=== PATIENT | male | born 1965 | race African-American/Black ===

== ENCOUNTER 2020-02-07 13:52 | Emergency (ER) | payer OTHER, SELFPAY ==
--- NOTE | ~2020-02-07 | XR_ITS ---
EXAMINATION: XR foot LT 2V INDICATION: Left foot pain TECHNIQUE: Two views of the left foot are obtained. COMPARISON: None available FINDINGS: There is plantar soft tissue swelling of the foot. No radiopaque soft tissue foreign body i s identified. There is no fracture. Bone alignment is normal. The joint spaces are maintained. A tiny metallic density is seen anteriorly in the distal tibia of unclear etiology. IMPRESSION: 1. Plantar soft tissue swelling of the foot without evidence of radiopaque soft tissue foreign body o r acute osseous abnormality. Reviewed, dictated and finalized at location A. IMPRESSION: 1. Plantar soft tissue swelling of the foot without evidence of radiopaque soft tissue foreign body or acute osseous abnormality.
[2020-02-07 13:57] VITALS: BP 115/95; PULSE 71; RESP 18; TEMP 36.8; O2SAT 99
--- NOTE | 2020-02-07 14:10 | ED.LOWEXIN ---
HPI - Extremity Injury (Lower) General Chief Complaint: Extremity Injury, Lower Stated Complaint: stepped on kiara Time Seen by Provider: 02/07/20 14:10 Source: patient and family Mode of arrival: ambulatory Limitations: no limitations History of Present Illness HPI Narrative: Patient is a 54-year-old male who presents for evaluation of puncture wound to his left foot from a nail. Patient states he was wearing a shoe yesterday when he stepped on a nail that appeared kiara. It went through the shoe into his foot. States he was not wearing any socks. He reports mild pain in the forefoot where the nail entered. He denies redness, swelling or discharge from the wound. Pain is mild in nature. No ankle pain. No swelling. No fever or chills. Patient is not up-to-date on her tetanus. Related Data Allergies Allergy/AdvReac Type Severity Reaction Status Date / Time No Known Drug Allergies Allergy Unknown Verified 05/25/19 09:47 Review of Systems Review of Systems: Narrative: CONSTITUTIONAL: Denies fever CARDIOVASCULAR: Denies chest pain RESPIRATORY: Denies cough or dyspnea. GASTROINTESTINAL: Denies abdominal pain SKIN: Denies rash MUSCULOSKELETAL: Denies back pain, left forefoot pain NEUROLOGIC: Denies headache PMFSH Past Medical History Medical History (Updated 02/07/20 @ 14:38 by Eula Coker MD) Osteoarthritis of both hands Social History Social History Smoking status: Current every day smoker Smoking end date: 05/13/11 Alcohol intake: never Exam Narrative: Exam Narrative: GENERAL: Awake, alert, conversant HEAD: Normocephalic, atraumatic. EYES: PERRLA and EOMI. ENT: Nares clear, no rhinorrhea or epistaxis. Mucous membranes moist. NECK: Supple. CHEST: No respiratory distress, breathing even and non labored HEART: Regular rate, sinus rhythm ABDOMEN:Non distended, non tender EXTREMITIES: Normal range of motion. No edema. Small puncture wound to the plantar aspect of the left forefoot. No active bleeding. No laceration. No discharge or erythema. No pain with palpation. Full strength in the left foot, full sensation without deficit. DP pulse 2+. SKIN: Warm, dry, no rash. NEURO:No focal deficits. Alert and oriented x3 Course Vital Signs Vital signs: Vital Signs Temperature 36.8 C 02/07/20 13:57 Pulse Rate 71 02/07/20 13:57 Respiratory Rate 18 02/07/20 13:57 Blood Pressure 115/95 H 02/07/20 13:57 Pulse Oximetry 99 02/07/20 13:57 Temperature 36.8 C 02/07/20 13:57 Pulse Rate 71 02/07/20 13:57 Respiratory Rate 18 02/07/20 13:57 Blood Pressure 115/95 H 02/07/20 13:57 Pulse Oximetry 99 02/07/20 13:57 MDM - Extremity Injury (Lower) MDM Narrative Medical decision making narrative: Patient with puncture wound to left foot that does not appear acutely infected. His tetanus was updated. X-ray shows no osseous abnormality such as fracture or retained foreign body. Given patient was wearing a shoe, will prophylax with antibiotics. Patient given primary care physician follow-up. Advised to return should symptoms change or worsen. Differential Diagnosis Differential diagnosis: Likely puncture wound of foot and other Medical Records Attestation: I reviewed the patient's medical records. Imaging Data Radiologist's impression: ITS Impressions Foot X-Ray 02/07/20 14:16 IMPRESSION: 1. Plantar soft tissue swelling of the foot without evidence of radiopaque soft tissue foreign body or acute osseous abnormality. Discharge Plan Discharge Clinical Impression: Foot pain, left, Puncture wound Patient Disposition: Home, Self-Care Condition: Stable Instructions: Puncture Wound in the Foot (ED), Antibiotic Form Additional Instructions: Your tetanus was updated. You have no sign of broken bone or evidence of nail remaining in the foot bed. No fracture. Please contact your primary care physici
[2020-02-07] MEDS: TETANUS,DIPHTHERIA,AC PERTUSSIS ADULT (0.5 ML) BOOSTRIX IM (14:37)
== END 2020-02-07 15:22 | disposition home or self-care (01) ==
LOC: ANHED 15:00
PROVIDERS: Emergency Provider Emergency Medicine; PCP Internal Medicine
DX: S91.332A Puncture wound without foreign body, left foot, initial encounter (principal); M19.042 Primary osteoarthritis, left hand; M19.041 Primary osteoarthritis, right hand; F17.200 Nicotine dependence, unspecified, uncomplicated; Z23 Encounter for immunization; W45.0XXA Nail entering through skin, initial encounter
CPT/HCPCS: 73620; 90471; 90715; 99283

== ENCOUNTER 2021-08-25 09:33 | Emergency (ER) | payer OTHER, SELFPAY ==
--- NOTE | ~2021-08-25 | XR_ITS ---
EXAMINATION: XR lumbar spine 2-3V EXAM DATE: 08/25/2021 10:33 INDICATION: No known recent injury provided at this time. Pain of the low back. TECHNIQUE: Lumber spine frontal, lateral, lateral L5-S1 projections for interpretation. Comparison is made to prior examination from 05/22/2019. FINDINGS: There is 5 mm anterolisthesis L5 on S1 with mild to moderate loss of this disc height. No s pondylolysis suspected. The other disc heights are maintained. There is 2 mm anterolisthesis L4 on L5 . There is moderate lumbar arthropathy. There is mild anterior wedging of the T11 vertebral body which is most likely chronic or congenital f inding than acute compression fracture (there is no step off or cortical break to suggest it is acute ). The lumbar vertebral body heights are maintained. Possible 4 mm left nephrolithiasis. Compared to 2019, mild progression in spondylosis. IMPRESSION: 1. Grade 1 anterolisthesis L4 on L5 and L5 on S1. 2. Moderate lumbar facet arthropathy. Reviewed, dictated and finalized at location B.
[2021-08-25 09:43] VITALS: BP 147/108; PULSE 67; RESP 14; TEMP 36.3; O2SAT 99
--- NOTE | 2021-08-25 10:20 | ED.BACK ---
HPI - Back Pain/Injury General Chief Complaint: Back Pain/Injury Stated Complaint: allergic reaction Time Seen by Provider: 08/25/21 09:42 Source: patient, family and RN notes reviewed Mode of arrival: ambulatory Limitations: no limitations History of Present Illness HPI Narrative: This is a 56 year old male who presents for evaluation of possible allergic reaction. Patient was having some mild low back soreness yesterday. His placed an absorbine patch to his mid low back. He states within 2 hours of having patch in placed he developed itching at rash at site of patch. He moved his patch. He has developed swelling, worsening rash and pain at previous patch location. He states his placed on calamine lotion. He has had improvement in rash and itching. He took ibuprofen 2 hours ago and he is having improvement in his pain. His back pain is worse with movement. He did not have rash, swelling before patch placement. He denies numbness, tingling, fever, chills, nausea, vomiting, limb weakness, saddle anesthesia. Denies injury Related Data Allergies Allergy/AdvReac Type Severity Reaction Status Date / Time No Known Drug Allergies Allergy Unknown Verified 05/25/19 09:47 Review of Systems Review of Systems: All systems reviewed & are unremarkable except as noted in HPI and below PMFSH Past Medical History Medical History Osteoarthritis of both hands Social History Social History Smoking status: Current every day smoker Smoking end date: 05/13/11 Alcohol intake: never Exam Const: General: no acute distress and alert Orientation/consciousness: patient oriented x3 Eyes: EOM: EOMs intact bilaterally Resp: Effort & Inspection: normal respiratory effort and no retractions Auscultation: clear to auscultation bilaterally Cardio: Rate: regular rate Rhythm: regular rhythm Heart sounds: no murmurs GI: GI Palp: Yes Soft to palpation, No Tenderness to palpation present (GI) and No Guarding due to palpation present (GI) Auscultation: normal bowel sounds Skin: Other: at midline lumbar at L5 tthere is area with rash with induration mild tenderness likely from contact dermatitis Neuro: General: patient oriented x3, moves all extremities and CN's II-XI intact bilaterally Psych: Mental Status: mental status grossly normal Affect: normal affect Course Reevaluation(s) Reevaluation #1: Patient appears to be having local reaction to the patch. I Discussed discharge plan and management with patient. Date: 08/25/21 Time: 11:02 Vital Signs Vital signs: Vital Signs Temperature 97.3 F L 08/25/21 09:43 Pulse Rate 67 08/25/21 09:43 Respiratory Rate 14 08/25/21 09:43 Blood Pressure 147/108 H 08/25/21 09:43 Pulse Oximetry 99 08/25/21 09:43 Temperature 97.3 F L 08/25/21 09:43 Pulse Rate 67 08/25/21 09:43 Respiratory Rate 14 08/25/21 09:43 Blood Pressure 147/108 H 08/25/21 09:43 Pulse Oximetry 99 08/25/21 09:43 MDM - Back Pain/Injury Imaging Data Radiologist's impression: ITS Impressions Lumbar Spine X-Ray 08/25/21 10:37 IMPRESSION: 1. Grade 1 anterolisthesis L4 on L5 and L5 on S1. 2. Moderate lumbar facet arthropathy. Discharge Plan Discharge Clinical Impression: Low back pain Contact dermatitis Qualifiers: Contact dermatitis type: irritant Contact dermatitis trigger: other trigger Qualified Code(s): L24.89 - Irritant contact dermatitis due to other agents Patient Disposition: Home, Self-Care Condition: Stable Instructions: Antibiotic Form, Contact Dermatitis (ED), Back Pain (ED) Additional Instructions: Today you were evaluated for a reaction to the patch that was placed on your back. This will improve over the next few days. Apply steriod cream to area and follow discharge instructions. Take ibuprofen for your p
[2021-08-25] MEDS: diphenhydrAMINE HCl CAP 25 MG CAPSULE 50 MG PO (10:26)
== END 2021-08-25 11:37 | disposition home or self-care (01) ==
PROVIDERS: Emergency Provider General Practice; PCP Internal Medicine
DX: L24.4 Irritant contact dermatitis due to drugs in contact with skin (principal); M54.50 Low back pain, unspecified; M19.042 Primary osteoarthritis, left hand; M19.041 Primary osteoarthritis, right hand; Z87.891 Personal history of nicotine dependence
CPT/HCPCS: 72100; 99283; A9270

== ENCOUNTER 2021-11-14 17:44 | Emergency (ER) | payer OTHER, SELFPAY ==
--- NOTE | ~2021-11-14 | CT_ITS ---
CTA OF RIGHT upper extremity EXAMINATION: CTA UE RT DATE: 11/14/2021 20:11 INDICATION: Bruising and swelling, crush injury. TECHNIQUE: Computed tomography (CT) of the right upper extremity was performed with 100 mL Omnipaque- 300 intravenous contrast in the arterial phase. Automated exposure control and iterative reconstructi on technique were employed. The dose-length product was 359.69 mGy-cm. Multiplanar reformat and 3-D v olume rendered images were created by the technologist on a separate workstation. COMPARISON: X-ray right forearm, same date FINDINGS: Limitations: None Bones: The included osseous structures are within normal limits. No acute fracture or dislocation The re are no erosive or destructive bony lesions. Soft Tissues:Subcutaneous edema/contusion in the lower portions of the upper arm and in the forearm. Vessels: No severe stenosis, occlusion, dissection, or evidence of injury in the upper extremity vasu lynn. Other findings: Left maxillary sinus opacification with surrounding sclerosis. Degenerative changes i n the cervical spine. IMPRESSION: No CT evidence of arterial injury in the right upper extremity. No acute osseous finding in the right upper extremity. Right upper extremity subcutaneous edema/contusion, without focal hematoma or other fluid collection detected. Chronic left maxillary sinusitis. Reviewed, dictated and finalized at location K. IMPRESSION: No CT evidence of arterial injury in the right upper extremity. No acute osseou s finding in the right upper extremity. Right upper extremity subcutaneous mckay a/contusion, without focal hematoma or other fluid collection detected. Chronic left maxillary sinusitis.
--- NOTE | ~2021-11-14 | XR_ITS ---
EXAM: XR forearm RT 2V DATE: 11/14/2021 18:21 HISTORY: injury . COMPARISON: None available. FINDINGS: Normal mineralization. No fracture or dislocation. No lytic or blastic lesion. Joint space s are maintained. No erosion or periosteal change. Anterior soft tissue swelling. IMPRESSION: No acute osseous finding in the right forearm. Reviewed, dictated and finalized at location K.
[2021-11-14 17:54] VITALS: BP 145/91; PULSE 104; RESP 16; TEMP 36.1; O2SAT 100
--- NOTE | 2021-11-14 18:21 | ED.UPPEXIN ---
HPI - Extremity Injury (Upper) General Chief Complaint: Extremity Injury, Upper Stated Complaint: right arm injury Time Seen by Provider: 11/14/21 18:20 Source: patient Mode of arrival: ambulatory Limitations: no limitations History of Present Illness HPI narrative: Patient is a 56 y/o male who presents to the ED with c/o R forearm pain. Patient reports he was up on a ladder yesterday morning around 10 AM, when the ladder began to fall. He fell backwards with the ladder, holding on with his right hand. He landed on the ground with his right arm underneath the ladder, landing directly under a rung of the ladder. He developed swelling and bruising to his R forearm almost immediately he reports. He has been icing his arm and elevating at home and took Ibuprofen for the pain this morning. The pain became worse this evening, which prompted him to come to the ED. Does report some tingling sensation over area of tense swelling. No numbness. Does still have ROM of elbow and wrist. No HI, LOC in the fall. Related Data Allergies Allergy/AdvReac Type Severity Reaction Status Date / Time No Known Drug Allergies Allergy Unknown Verified 05/25/19 09:47 Review of Systems Review of Systems: CONSTITUTIONAL: Denies fever, chills, or sweats. CARDIOVASCULAR: Denies chest pain. RESPIRATORY: Denies dyspnea. GASTROINTESTINAL: Denies abdominal pain, nausea, vomiting. SKIN: Reports bruising/swelling to R forearm. MUSCULOSKELETAL: Reports R forearm pain. Denies back pain. NEUROLOGIC: Reports tingling to R forearm. Denies HI, LOC, numbness, or weakness. All systems reviewed & are unremarkable except as noted in HPI and below PMFSH Past Medical History Medical History (Updated 11/15/21 @ 00:08 by Lena Kaminski PA-C) Osteoarthritis of both hands Surgical History Surgical History (Updated 11/14/21 @ 19:27 by Lena Kaminski PA-C) No pertinent past surgical history Social History Social History (Updated 11/15/21 @ 03:33 by Lena Kaminski PA-C) Smoking status: Former smoker Smoking end date: 05/13/11 Alcohol intake: never Exam Narrative: GENERAL: Well appearing, well-nourished, non-toxic, in no acute distress. HEAD: Normocephalic, atraumatic. NECK: Supple. No adenopathy, no masses. RESPIRATORY: Airway patent, respirations nonlabored. Clear to auscultation bilaterally, no rales, rhonchi, wheezing. CARDIOVASCULAR: Regular rate and rhythm without murmurs, rubs, or gallops. Radial pulses strong, 2+ and equal bilaterally. MUSCULOSKELETAL: Full active ROM of R elbow and R wrist. Significant pain with elbow supination and passive wrist extension. No significant pain with passive extension of fingers. Diffuse red/purple bruising to volar R forearm. Large tender baseball sized area of tense swelling over proximal volar R forearm a few finger breaths distance from elbow crease. Remainder of arm is soft. Sensation intact to RUE. SKIN: Warm, dry, normal color. No rashes. NEURO: A&O X3. Speech clear. Cranial nerves II-XII grossly intact. Steady gait. No ataxic movements. PSYCHIATRIC: Appropriate mood and affect. Normal interaction. Course Consultations Consultation #1: Discussed case with Dr. Higuera, Orthopedics, recommended volar forearm splint for support and education of compartment syndrome. Date: 11/14/21 Time: 21:10 Vital Signs Vital signs: Vital Signs Temperature 97 F L 11/14/21 17:54 Pulse Rate 104 H 11/14/21 17:54 Respiratory Rate 16 11/14/21 17:54 Blood Pressure 145/91 H 11/14/21 17:54 Pulse Oximetry 100 11/14/21 17:54 Oxygen Delivery Room Air 11/14/21 17:54 Temperature 97 F L 11/14/21 17:54 Pulse Rate 78 11/14/21 23:47 Respiratory Rate 16 11/14/21 23:47 Blood Pressure 144/95 H 11/14/21 23:47 Pulse Oximetry 98 11/14/21 23:47 Oxygen Delivery Room Air 11/14/21 17:54 MDM - Extremity Injury (Upper) MDM Narrative Medical decision making narrative: Patient presented to ED status post fa
[2021-11-14 19:11] LABS: Basophils Percent Auto 0.3 % (0.2-1.2); Eosinophils Absolute Auto 0.2 K/mm3 (0-0.3); Eosinophils Percent Auto 1.6 % (0-4.4); Hematocrit 42.4 % (42.0-52.0); Hemoglobin 13.2 g/dL (14.0-18.0); Immature Granulocyte Absolute 0.02 K/mm3 (0.00-0.031); Immature Granulocyte Percent A 0.2 % (0-0.5); Lymphocytes Absolute Auto 2.78 K/mm3 (0.9-3.2); Lymphocytes Percent Auto 26.9 % (18.3-44.2); Mean Corpuscular HGB Conc 31.1 g/dl (32-36); Mean Corpuscular Hemoglobin 23.1 pg (26-34); Mean Corpuscular Volume 74.3 fl (80-100); Mean Platelet Volume 10.4 fl (7.4-10.4); Monocytes Absolute Auto 0.9 K/mm3 (0.1-0.6); Monocytes Percent Auto 8.3 % (2.6-8.5); Neutrophils Absolute Auto 6.5 K/mm3 (1.3-6.7); Neutrophils Percent Auto 62.7 % (45.5-73.1); Platelet Count Result 201 k/mm3 (150-375); Red Blood Count 5.71 M/mm3 (4.6-6.20); Red Cell Distribution Width 17.2 % (11.5-14.5); White Blood Count 10.4 K/mm3 (4.5-10.0)
--- NOTE | 2021-11-14 19:13 | PC.NURSE ---
patient refused iv access for ct scan
[2021-11-14 19:21] LABS: Lactic Acid Reflex 1.1 mmol/L (0.7-2.0)
[2021-11-14 19:23] LABS: Platelet Estimate Adequate (Adequate)
[2021-11-14 19:24] LABS: Anisocytosis 1+ (NORMAL); Microcytosis 1+ (NORMAL); Ovalocytes 1+ (NORMAL); Target Cells 1+ (NORMAL)
[2021-11-14 19:42] LABS: Alanine Aminotransferase 26 U/L (6-50); Albumin Level 4.6 g/dL (3.5-5.1); Alkaline Phosphatase 84 U/L (38-126); Anion Gap 5 mmol/L (8-16); Aspartate Amino Transferase 47 U/L (17-59); Bilirubin,Total 0.5 mg/dL (0.2-1.3); Blood Urea Nitrogen 21 mg/dL (9-20); Carbon Dioxide 26 mmol/L (22-30); Chloride 109 mmol/L (98-107); Creatine Kinase 2043 U/L (55-170); Estimated CRCL calculation 78 ml/min; Estimated Glomerular Filt Rate > 60; Glucose 111 mg/dL (65-110); Potassium 4.2 mmol/L (3.4-5.0); Sodium 140 mmol/L (137-145)
[2021-11-14] MEDS: LORazepam INJ (*CRX) 2 MG/ML VIAL 0.5 MG IV PUSH (20:36)
[2021-11-14] MEDS: MORPHINE SULFATE (*CRX) 2 MG/ML INJ IV PUSH (20:36)
[2021-11-14] MEDS: SODIUM CHLORIDE 0.9% IV 1,000 ML 999 ML IV CONT ×2 (21:32→22:23)
[2021-11-14 21:35] VITALS: BP 137/89; PULSE 87; RESP 18; O2SAT 99
--- NOTE | 2021-11-14 22:46 | PC.NURSE ---
RN TOOK OVER FOR PT. TECH APPLIED RIGHT ARM SPLINT. PMI INTACT. PT DENIES PAIN.
[2021-11-14 23:45] LABS: Creatine Kinase 1350 U/L (55-170)
[2021-11-14 23:47] VITALS: BP 144/95; PULSE 78; RESP 16; O2SAT 98
[2021-11-15] MEDS: NAPROXEN 500 MG TABLET PO (00:12)
== END 2021-11-15 00:21 | disposition home or self-care (01) ==
PROVIDERS: Physician Assistant; Emergency Provider Emergency Medicine; PCP Internal Medicine
DX: S57.81XA Crushing injury of right forearm, initial encounter (principal); T79.6XXA Traumatic ischemia of muscle, initial encounter; M19.042 Primary osteoarthritis, left hand; M19.041 Primary osteoarthritis, right hand; Z87.891 Personal history of nicotine dependence; W11.XXXA Fall on and from ladder, initial encounter
CPT/HCPCS: 29125; 36415; 73090; 73206; 80053; 82550; 83605; 85025; 96361; 96374; 96375; 99284; A9270; J2060; J2270; J7030; Q9967

== ENCOUNTER 2021-11-30 11:50 | Outpatient (CLI) | payer OTHER, SELFPAY ==
--- NOTE | ~2021-11-30 | CT_ITS ---
EXAMINATION: CT forearm RT wo con DATE: 11/30/2021 12:07 INDICATION: Right forearm injury TECHNIQUE: High resolution computed tomography (CT) of the was performed without intravenous contrast . Additional sagittal and coronal reconstructions were performed. The dose-length product was 137.29 mGy-cm. COMPARISON: None FINDINGS: 6.3 x 4.9 x 3.0 cm complex lenticular fluid collection with region of central increased density likel y representing an intramuscular hematoma within the proximal to mid right brachioradialis muscle cent ered approximately 8 cm distal to the elbow joint line. There is some subcutaneous edema about the fo rearm. No other abnormal fluid collections identified. Mild osteoarthritis at the right elbow with no joint effusion. 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 Acute to subac radha appearing nondisplaced fracture along the palmar/ulnar aspect of the proximal triquetrum. IMPRESSION: 1. 6.3 x 4.9 x 3.0 cm intramuscular hematoma within the proximal to mid brachioradialis muscle. 2. Acute to subacute appearing nondisplaced fracture at the palmar/ulnar margin of the triquetrum. 3. 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 Reviewed, dictated and finalized at location A. IMPRESSION: 1. 6.3 x 4.9 x 3.0 cm intramuscular hematoma within the proximal to mid brachio radialis muscle. 2. Acute to subacute appearing nondisplaced fracture at the palmar/ulnar margin of the triquetrum. 3. 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
== END 2021-11-30 11:51 ==
PROVIDERS: PCP Family Medicine; Visit Provider Orthopaedic Surgery
DX: S62.111A Displaced fracture of triquetrum [cuneiform] bone, right wrist, initial encounter for closed fracture (principal); X58.XXXA Exposure to other specified factors, initial encounter
CPT/HCPCS: 73200

== ENCOUNTER 2022-09-18 09:46 | Outpatient (CLI) | payer OTHER, SELFPAY ==
[2022-09-18 10:36] LABS: Basophils Percent Auto 0.4 % (0.2-1.2); Eosinophils Absolute Auto 0.3 K/mm3 (0-0.3); Eosinophils Percent Auto 3.8 % (0-4.4); Hematocrit 44.6 % (42.0-52.0); Hemoglobin 13.5 g/dL (14.0-18.0); Immature Granulocyte Absolute 0.01 K/mm3 (0.00-0.031); Immature Granulocyte Percent A 0.1 % (0-0.5); Lymphocytes Absolute Auto 2.11 K/mm3 (0.9-3.2); Lymphocytes Percent Auto 27.5 % (18.3-44.2); Mean Corpuscular HGB Conc 30.3 g/dl (32-36); Mean Corpuscular Hemoglobin 22.7 pg (26-34); Mean Corpuscular Volume 75.1 fl (80-100); Mean Platelet Volume 11.2 fl (7.4-10.4); Monocytes Absolute Auto 0.7 K/mm3 (0.1-0.6); Monocytes Percent Auto 8.9 % (2.6-8.5); Neutrophils Absolute Auto 4.6 K/mm3 (1.3-6.7); Neutrophils Percent Auto 59.3 % (45.5-73.1); Platelet Count Result 218 k/mm3 (150-375); Red Blood Count 5.94 M/mm3 (4.6-6.20); Red Cell Distribution Width 17.2 % (11.5-14.5); White Blood Count 7.7 K/mm3 (4.5-10.0)
[2022-09-18 10:43] LABS: Alanine Aminotransferase 24 U/L (6-50); Albumin Level 4.7 g/dL (3.5-5.1); Alkaline Phosphatase 81 U/L (38-126); Anion Gap 7 mmol/L (8-16); Aspartate Amino Transferase 28 U/L (17-59); Bilirubin,Total 0.7 mg/dL (0.2-1.3); Blood Urea Nitrogen 16 mg/dL (9-20); Calcium 9.1 mg/dL (8.4-10.2); Carbon Dioxide 28 mmol/L (22-30); Chloride 106 mmol/L (98-107); Cholesterol 191 mg/dL (0-200); Estimated Glomerular Filt Rate > 60; Glucose 96 mg/dL (65-110); HDL Direct 39 mg/dL; Potassium 4.4 mmol/L (3.4-5.0); Sodium 141 mmol/L (137-145); Triglycerides 62 mg/dL (<150)
[2022-09-18 10:56] LABS: LDL Cholesterol Direct 125 mg/dL
[2022-09-18 11:10] LABS: Creatinine Urine 143.1 mg/dL
[2022-09-18 11:12] LABS: Prostate Specific Antigen 9.2 ng/mL (< OR = 4.0); Thyroid Stimulating Hormone 0.802 uIU/mL (0.465-4.680)
[2022-09-18 11:15] LABS: MALB Creatinine Ratio 24.3 mg/g (0-30); Microalbumin Urine Random 34.8 mg/L (0-16.7)
[2022-09-18 11:17] LABS: Free T4 Free Thyroxine 1.02 ng/mL (0.78-2.19)
[2022-09-18 12:16] LABS: Vitamin D 25 Hydroxy 29.5 ng/mL
[2022-09-22 04:44] LABS: Triiodothyronine T3 Free 3.4 pg/mL (2.3-4.2)
== END 2022-09-18 09:47 | disposition home or self-care (01) ==
PROVIDERS: Nurse Practitioner Adult Health; PCP Family Medicine; Visit Provider Family Medicine
DX: E78.5 Hyperlipidemia, unspecified (principal); R53.83 Other fatigue; I10 Essential (primary) hypertension; R53.1 Weakness; E55.9 Vitamin D deficiency, unspecified; Z12.5 Encounter for screening for malignant neoplasm of prostate; Z13.0 Encounter for screening for diseases of the blood and blood-forming organs and certain disorders involving the immune mechanism; Z13.6 Encounter for screening for cardiovascular disorders; Z13.220 Encounter for screening for lipoid disorders; Z13.29 Encounter for screening for other suspected endocrine disorder; R80.9 Proteinuria, unspecified
CPT/HCPCS: 36415; 80053; 80061; 82043; 82306; 84153; 84439; 84443; 84481; 85025; G0103

== ENCOUNTER 2022-12-04 11:15 | Emergency (ER) | payer OTHER, SELFPAY ==
[2022-12-04 11:18] VITALS: BP 145/93; PULSE 73; RESP 16; TEMP 36.3; O2SAT 100
--- NOTE | 2022-12-04 13:10 | ED.GENADULT ---
HPI - General Adult General Chief complaint: Unspecified Stated complaint: post op complications Time Seen by Provider: 12/04/22 12:02 History of Present Illness HPI narrative: 57-year-old male presented to the emergency department for evaluation of rectal bleeding. Patient did have a prostate biopsy by Dr. Waddell on 11/29. Patient was told not to lift anything greater than 5 pounds. Patient was back to work on Saturday and was lifting very heavy items for his job. Patient states he lifts things up to 150 pounds. Patient states he began having some rectal bleeding while at work. Patient states that he has no increased pain. Patient is passing bowel movements with no discomfort. Patient was passing some blood clots with bowel movements but was primarily comes in concerned because he was still passing some blood even while at rest and not passing stool. Patient called his urology office and was told to be evaluated at the ED. Related Data Allergies Allergy/AdvReac Type Severity Reaction Status Date / Time No Known Drug Allergies Allergy Unknown Unknown Verified 01/18/22 10:47 Review of Systems Review of Systems: All systems reviewed & are unremarkable except as noted in HPI and below PMFSH Past Medical History Medical History Osteoarthritis of both hands Right forearm injury Surgical History Surgical History No pertinent past surgical history Family History Family History Other Cancer Diabetes mellitus High cholesterol Hypertension Social History Social History Smoking status: Former smoker Smoking end date: 05/13/11 Alcohol intake: current Drinks per week: 5 Substance use: never Living arrangements: with family Gender identity (if verbalized by the patient): Male Exam Narrative: APPEARANCE: Well appearing, no pain, no distress, well-nourished. HEAD: normocephalic, atraumatic. EYES: PERRLA/EOMI, conjunctivae clear. NOSE: Normal no drainage EARS:TMS clear with good light reflex. THROAT: Pharynx clear, no exudate. NECK: Supple. No adenopathy, no masses. RESPIRATORY: Airway patent, respirations nonlabored. Clear to auscultation bilaterally, no rales, rhonchi, wheezing. CARDIOVASCULAR: Regular rate and rhythm without murmurs rubs or gallops. ABDOMINAL: Soft, nontender, nondistended, normal bowel sounds Rectal exam: No active bleeding and patient had dry nonbloody toilet paper in the gluteal cleft at time of examination. Nontender and no significant bleeding during the rectal exam. MUSCULOSKELETAL: Moves all extremities. Strength/ROM intact, No edema, No calf tenderness. NEURO: Alert. Cranial nerves II through XII intact. Grossly intact SKIN: Warm, dry. Normal Color Course Course Emergency Course: 57-year-old male presented emergency department for evaluation of intermittent rectal bleeding. Patient had only a small amount of blood on the digital rectal exam and has not been passing any blood in the ED. Patient is afebrile with no leukocytosis and a stable hemoglobin. I discussed the case with Rosio sky for urology and she was comfortable with the plan to have the patient resume lifting restrictions and to have follow-up with urology as outpatient. Patient was comfortable with this plan. All questions concerns were addressed and patient was well-appearing at time of discharge. After patient was discharged I did discuss the case with his urologist and his urologist was comfortable with the plan. Vital Signs Vital signs: Vital Signs Temperature 97.3 F L 12/04/22 11:18 Pulse Rate 73 12/04/22 11:18 Respiratory Rate 16 12/04/22 11:18 Blood Pressure 145/93 H 12/04/22 11:18 Pulse Oximetry 100 12/04/22 11:18 Oxygen Delivery Room Air 12/04/22 11:18
[2022-12-04 13:14] LABS: Basophils Percent Auto 0.4 % (0.2-1.2); Eosinophils Absolute Auto 0.5 K/mm3 (0-0.3); Eosinophils Percent Auto 5.5 % (0-4.4); Hematocrit 41.9 % (42.0-52.0); Hemoglobin 12.9 g/dL (14.0-18.0); Immature Granulocyte Absolute 0.02 K/mm3 (0.00-0.031); Immature Granulocyte Percent A 0.2 % (0-0.5); Lymphocytes Absolute Auto 2.29 K/mm3 (0.9-3.2); Lymphocytes Percent Auto 26.9 % (18.3-44.2); Mean Corpuscular HGB Conc 30.8 g/dl (32-36); Mean Corpuscular Hemoglobin 23.3 pg (26-34); Mean Corpuscular Volume 75.6 fl (80-100); Monocytes Absolute Auto 0.7 K/mm3 (0.1-0.6); Monocytes Percent Auto 7.8 % (2.6-8.5); Neutrophils Percent Auto 59.2 % (45.5-73.1); Platelet Count Result 223 k/mm3 (150-375); Red Blood Count 5.54 M/mm3 (4.6-6.20); Red Cell Distribution Width 16.7 % (11.5-14.5); White Blood Count 8.5 K/mm3 (4.5-10.0)
== END 2022-12-04 14:40 | disposition home or self-care (01) ==
PROVIDERS: Emergency Provider Emergency Medicine; PCP Family Medicine
DX: K62.5 Hemorrhage of anus and rectum (principal)
CPT/HCPCS: 36415; 85025; 99283

== ENCOUNTER 2023-02-24 19:51 | Emergency (ER) | payer OTHER, SELFPAY ==
[2023-02-24 19:55] VITALS: BP 140/88; PULSE 104; RESP 18; TEMP 37; O2SAT 97
[2023-02-24 20:56] VITALS: BP 132/91; PULSE 86; RESP 16; O2SAT 100
--- NOTE | 2023-02-24 21:44 | ED.GENADULT ---
HPI - General Adult General Chief complaint: Unspecified Stated complaint: Port is bleeding Time Seen by Provider: 02/24/23 20:50 Source: patient, family and old records reviewed Mode of arrival: ambulatory Limitations: no limitations History of Present Illness HPI narrative: This is a 58-year-old male with past medical history prostate cancer status post surgical intervention 02/14/[address] Dany Grove at [facility]. Patient had a port/drain that was left in place after surgical invention as well as an indwelling Sprague catheter after surgery. Both of these were removed on 02/22/2023. Ever since, he has continued to have some bleeding from his penis as well as some bleeding from the surgical site in the right lower quadrant. He is also experiencing some pain at his perineum but denies any penile or testicular pain. He denies any fevers but does have some pain when seated. He denies any anticoagulation other than taking an 81 mg aspirin daily. He has been using a pad and a brief for the penile bleeding and notes it occasionally dripping blood. He has been using abdominal pads on the right lower quadrant surgical site and these have become saturated requiring being changed approximately every 2 hours. He is also having hematuria since surgery. Location: abdomen and genitals Related Data Allergies Allergy/AdvReac Type Severity Reaction Status Date / Time No Known Drug Allergies Allergy Unknown Unknown Verified 02/24/23 20:52 Review of Systems Review of Systems: All systems reviewed & are unremarkable except as noted in HPI and below (HPI) [facility] Past Medical History Medical History (Updated 02/24/23 @ 22:52 by Opal Collins MD) Osteoarthritis of both hands Prostate cancer Right forearm injury Surgical History Surgical History (Updated 02/24/23 @ 22:14 by Opal Collins MD) History of prostate surgery Family History Family History Other Cancer Diabetes mellitus High cholesterol Hypertension Social History Social History Smoking status: Former smoker Smoking end date: 05/13/11 Alcohol intake: current Drinks per week: 5 Substance use: never Living arrangements: with family Gender identity (if verbalized by the patient): Male Exam Const: General: cooperative, healthy appearing, comfortable, well developed, alert, awake, uncomfortable, well groomed and average body habitus; No combative, confusion, diaphoretic, intoxicated appearing, lethargic, poor hygiene or tired appearing Orientation/consciousness: patient oriented x3 Limitations: no limitations HENMT: Head: normal to inspection, no Thomas's sign and no raccoon eyes Ears: hearing grossly normal bilaterally and external ears normal Face/Nose/Sinus: Normal external nose present Face and sinus: normal facial exam Eyes: General: appearance normal, both eyes and all related structures Neck: Neck: normal visual inspection Resp: Effort & Inspection: normal respiratory effort, able to speak in complete sentences and no audible wheezes Cardio: Rate: tachycardic GI: Inspection: scar (multiple well-healing scars across lower abdomen b/l with dermabond) GI Palp: No abdominal tenderness and No Rigid due to palpation Auscultation: normal bowel sounds Other: 1cm wound in RLQ not covered by Dermabond with non pulsatile, oozing bleeding : Male General Exam: Yes normal external exam, No inguinal lymphadenopathy, No lacerations and No perineal induration (no erythema, crepitus, or bullae of perineum) Penis: Yes normal penis, Yes circumcised, No erythematous, No vesicles, No paraphimosis, No phimosis, No Localized penile swelling present, No ulceration and No Genital lesions present Meatus: meatus normal and No Blood at meatus present Scrotum: other (cremasteric reflex intact bilaterally) Testes: testicular lie n
[2023-02-24 21:51] LABS: Basophils Percent Auto 0.3 % (0.2-1.2); Eosinophils Absolute Auto 0.4 K/mm3 (0-0.3); Eosinophils Percent Auto 4.1 % (0-4.4); Hematocrit 30.1 % (42.0-52.0); Immature Granulocyte Absolute 0.03 K/mm3 (0.00-0.031); Immature Granulocyte Percent A 0.3 % (0-0.5); Lymphocytes Absolute Auto 2.21 K/mm3 (0.9-3.2); Lymphocytes Percent Auto 22.4 % (18.3-44.2); Mean Corpuscular HGB Conc 29.9 g/dl (32-36); Mean Corpuscular Volume 76.8 fl (80-100); Mean Platelet Volume 9.5 fl (7.4-10.4); Monocytes Absolute Auto 0.7 K/mm3 (0.1-0.6); Monocytes Percent Auto 6.9 % (2.6-8.5); Neutrophils Absolute Auto 6.5 K/mm3 (1.3-6.7); Platelet Count Result 444 k/mm3 (150-375); Red Blood Count 3.92 M/mm3 (4.6-6.20); Red Cell Distribution Width 14.9 % (11.5-14.5); White Blood Count 9.9 K/mm3 (4.5-10.0)
[2023-02-24 22:03] LABS: Partial Thromboplastin Time 34.6 SECONDS (22.3-36.8); Prothrombin Time 13.4 Seconds (11.1-14.7)
[2023-02-24 23:20] VITALS: BP 148/89; PULSE 74; RESP 15; O2SAT 100
[2023-02-24] MEDS: FERROUS SULFATE DRIED 142 MG TABCR PO (23:35)
== END 2023-02-24 23:20 | disposition home or self-care (01) ==
PROVIDERS: Emergency Provider Student in an Organized Health Care Education/Training Program; PCP Family Medicine
DX: D62 Acute posthemorrhagic anemia (principal)
CPT/HCPCS: 36415; 85025; 85610; 85730; 99283; A9270

== ENCOUNTER 2023-10-03 09:49 | Outpatient (CLI) | payer MEDICAID, SELFPAY ==
[2023-10-03 10:26] LABS: Basophils Percent Auto 0.4 % (0.2-1.2); Eosinophils Absolute Auto 0.3 K/mm3 (0-0.3); Eosinophils Percent Auto 4.8 % (0-4.4); Hematocrit 37.8 % (42.0-52.0); Hemoglobin 11.4 g/dL (14.0-18.0); Immature Granulocyte Absolute 0.01 K/mm3 (0.00-0.031); Immature Granulocyte Percent A 0.2 % (0-0.5); Lymphocytes Absolute Auto 0.72 K/mm3 (0.9-3.2); Lymphocytes Percent Auto 13.4 % (18.3-44.2); Mean Corpuscular HGB Conc 30.2 g/dl (32-36); Mean Corpuscular Hemoglobin 22.8 pg (26-34); Mean Corpuscular Volume 75.6 fl (80-100); Mean Platelet Volume 10.7 fl (7.4-10.4); Monocytes Absolute Auto 0.6 K/mm3 (0.1-0.6); Monocytes Percent Auto 10.6 % (2.6-8.5); Neutrophils Absolute Auto 3.8 K/mm3 (1.3-6.7); Neutrophils Percent Auto 70.6 % (45.5-73.1); Platelet Count Result 234 k/mm3 (150-375); Red Cell Distribution Width 15.4 % (11.5-14.5); White Blood Count 5.4 K/mm3 (4.5-10.0)
[2023-10-03 10:37] LABS: Alanine Aminotransferase 28 U/L (6-50); Albumin Level 4.8 g/dL (3.5-5.1); Alkaline Phosphatase 109 U/L (38-126); Anion Gap 9 mmol/L (4-12); Aspartate Amino Transferase 27 U/L (17-59); Bilirubin,Total 0.5 mg/dL (0.2-1.3); Blood Urea Nitrogen 19 mg/dL (9-20); Calcium 10.3 mg/dL (8.4-10.2); Carbon Dioxide 27 mmol/L (22-30); Chloride 108 mmol/L (98-107); Cholesterol 164 mg/dL (0-200); Estimated Glomerular Filt Rate > 60; Glucose 105 mg/dL (65-110); HDL Direct 34 mg/dL; Potassium 4.8 mmol/L (3.4-5.0); Sodium 144 mmol/L (137-145); Triglycerides 158 mg/dL (<150)
[2023-10-03 10:48] LABS: LDL Cholesterol Direct 106 mg/dL
[2023-10-03 11:05] LABS: Hemoglobin A1C 5.8 % (<5.7)
== END 2023-10-03 09:50 | disposition home or self-care (01) ==
PROVIDERS: PCP Nurse Practitioner
DX: E78.5 Hyperlipidemia, unspecified (principal); D64.9 Anemia, unspecified; I10 Essential (primary) hypertension; R73.01 Impaired fasting glucose; E55.9 Vitamin D deficiency, unspecified
CPT/HCPCS: 36415; 80053; 80061; 82306; 83036; 85025

== ENCOUNTER 2023-11-19 08:25 | Outpatient (CLI) | payer OTHER, SELFPAY ==
--- NOTE | ~2023-11-19 | NM_ITS ---
EXAMINATION: NM bone scan whole body DATE: 11/19/2023 12:04 INDICATION: Prostate cancer TECHNIQUE: 25.9 mCi Tc-99m HDP was administered intravenously. Delayed whole-body scintigrams were o btained. COMPARISON: Lumbar spine radiographs dated 08/25/2021 and 05/22/2019 There are no other recent imaging studies available at our institution. FINDINGS: Increased uptake at the bilateral L4-L5 and left L5-S1 facet joints with corresponding moderate to se paula osteoarthritis evident at these locations on the prior radiographs. Additional likely degenerati ve joint centered uptake at the bilateral acromioclavicular, the left sternoclavicular and left gleno humeral joints as well as a few joints at the bilateral feet and ankles. Mild likely degenerative dis c centered uptake at the lower cervical spine. There is a single indeterminate focus of increased upt lisseth medial to the right acetabulum which appears separate from the shielded activity in the bladder w hich appears to project outside the margins of the bones at the sciatic notch potentially representin g activity within the distal right ureter. No other suspicious foci of abnormal bone uptake. IMPRESSION: 1. Typical pattern of scattered mild degenerative joint and disc centered uptake as detailed above. 2. Single atypical focus of increased uptake projecting over the extraosseous region of the right sci atic notch along side but separate from the bladder activity which could represent activity in the di stal ureter or potentially a bladder diverticulum. Consider further evaluation with either plain radi ographs or CT of the pelvis. 2. No other suspicious foci of abnormal bone uptake to suggest metastatic disease. Reviewed, dictated and finalized at location A. IMPRESSION: 1. Typical pattern of scattered mild degenerative joint and disc centered uptak e as detailed above. 2. Single atypical focus of increased uptake projecting over the extraosseous r egion of the right sciatic notch along side but separate from the bladder activ ity which could represent activity in the distal ureter or potentially a bladde r diverticulum. Consider further evaluation with either plain radiographs or CT of the pelvis. 2. No other suspicious foci of abnormal bone uptake to suggest metastatic disea se.
== END 2023-11-19 08:26 | disposition home or self-care (01) ==
PROVIDERS: PCP Family Medicine; Visit Provider Internal Medicine Hematology & Oncology
DX: C61 Malignant neoplasm of prostate (principal); M47.896 Other spondylosis, lumbar region; M47.897 Other spondylosis, lumbosacral region; M19.012 Primary osteoarthritis, left shoulder; M19.011 Primary osteoarthritis, right shoulder; M19.072 Primary osteoarthritis, left ankle and foot; M19.071 Primary osteoarthritis, right ankle and foot
CPT/HCPCS: 78306; A9503

== ENCOUNTER 2023-12-16 19:48 | Emergency (ER) | payer OTHER, SELFPAY ==
[2023-12-16 20:15] VITALS: BP 137/77; PULSE 100; RESP 20; TEMP 36.9; O2SAT 100
== END 2023-12-16 22:28 | disposition left against medical advice (07) ==
LOC: ANHED 22:25
PROVIDERS: PCP Family Medicine
DX: R10.9 Unspecified abdominal pain (principal)
CPT/HCPCS: 99199

== ENCOUNTER 2024-06-02 12:55 | Outpatient (CLI) | payer OTHER, SELFPAY ==
[2024-06-02 13:18] LABS: Basophils Percent Auto 0.4 % (0.2-1.2); Eosinophils Absolute Auto 0.1 K/mm3 (0-0.3); Eosinophils Percent Auto 2.8 % (0-4.4); Hemoglobin 10.9 g/dL (14.0-18.0); Immature Granulocyte Absolute 0.01 K/mm3 (0.00-0.031); Immature Granulocyte Percent A 0.2 % (0-0.5); Lymphocytes Absolute Auto 1.22 K/mm3 (0.9-3.2); Lymphocytes Percent Auto 24.5 % (18.3-44.2); Mean Corpuscular HGB Conc 29.5 g/dl (32-36); Mean Corpuscular Hemoglobin 22.2 pg (26-34); Mean Corpuscular Volume 75.5 fl (80-100); Mean Platelet Volume 10.3 fl (7.4-10.4); Monocytes Absolute Auto 0.5 K/mm3 (0.1-0.6); Monocytes Percent Auto 10.7 % (2.6-8.5); Neutrophils Absolute Auto 3.1 K/mm3 (1.3-6.7); Neutrophils Percent Auto 61.4 % (45.5-73.1); Platelet Count Result 230 k/mm3 (150-375); Red Cell Distribution Width 15.8 % (11.5-14.5)
[2024-06-02 13:23] LABS: Anisocytosis 1+; Hypochromasia 1+; Microcytosis 1+ (NORMAL); Ovalocytes 1+; Platelet Estimate Adequate (Adequate); Poikilocytosis 1+; Schistocytes None Seen
[2024-06-02 16:30] LABS: Iron 100 ug/dL (49-181)
[2024-06-02 16:37] LABS: Anion Gap 12 mmol/L (4-12); Blood Urea Nitrogen 17 mg/dL (9-20); Calcium 10.3 mg/dL (8.4-10.2); Carbon Dioxide 25 mmol/L (22-30); Chloride 104 mmol/L (98-107); Estimated Glomerular Filt Rate > 60; Glucose 89 mg/dL (65-110); Potassium 4.7 mmol/L (3.4-5.0); Sodium 141 mmol/L (137-145)
[2024-06-02 16:41] LABS: Percent Iron Saturation 26 % (20-50)
[2024-06-02 17:10] LABS: Prostate Specific Antigen < 0.1 ng/mL (< OR = 4.0)
[2024-06-02 21:36] LABS: Folic Acid > 20.0 ng/mL (2.76->20)
== END 2024-06-02 12:56 | disposition home or self-care (01) ==
LOC: ANHLAB 12:57
PROVIDERS: PCP Family Medicine; Visit Provider Internal Medicine Hematology & Oncology
DX: D64.9 Anemia, unspecified (principal)
CPT/HCPCS: 36415; 80048; 82607; 82728; 82746; 83540; 83550; 84153; 85025

== ENCOUNTER 2024-08-07 08:25 | Outpatient (CLI) | payer OTHER, SELFPAY ==
--- NOTE | ~2024-08-07 | NM_ITS ---
EXAMINATION: NM bone scan whole body DATE: 08/07/2024 12:03 INDICATION: Prostate cancer TECHNIQUE: 25.8 mCi Tc-99m HDP was administered intravenously. Delayed whole-body scintigrams were o btained. COMPARISON: 11/29/2023 FINDINGS: Unchanged pattern of likely degenerative joint centered uptake at the bilateral acromioclavicular, le ft sternoclavicular, right internal and at the facet joints bilaterally at L4-L5 and on the left at L 5-S1. No new or atypically located foci of abnormal bone uptake to suggest metastatic disease. IMPRESSION: 1. No lesion suspicious for metastatic disease. Reviewed, dictated and finalized at location B.
--- OUTSIDE RECORDS SUMMARY | 2024-08-07 08:42 | XMS_ITS | Continuity of Care Document ---
Author Organization [facility] Address [address] [place] [address] Phone Care Team Providers Care Sales And Service Officer Name Role Phone Unavailable Unavailable Unavailable Medications Medication Instructions Dosage Effective Dates (start - stop) Status Comments Combivent 18 mcg-103 mcg/Actuation Aerosol Inhaler inhale 2 puff by INHALATION route 4 times every day - Active Procedures Procedure Date NONINVASIVE EAR OR PULSE OXI METRY FOR OXYGEN SATURATION; SINGLE DETERMINATION OFFICE/OUTPATIENT VISIT, [facility] Advance Directives Directive Yes / No Effective Date File Name Resuscitation Not Answered N/A N/A Life Support Not Answered N/A N/A Intubation Not Answered N/A N/A Antibiotics Not Answered N/A N/A IV Fluid Support Not Answered N/A N/A Tube Feed Not Answered N/A N/A Other Directive N/A N/A WARNING:The information contained in this section is historical and is provided for information only and does not constitute a legal document or any assurance that the information is still accurate. Please verify the information with the smith of the legal document before using it for clinical purposes. Encounters Encounter Description Practice Location Reason(s) For Visit Diagnoses Date Provider Providers Copied on Encounter OFFICE/OUTPAT IENT VISIT, [facility] , [address], [place], [place], [id number], [place] tel:[phone] [place] follow up (chief complaint)s hortness of breath (chief complaint) Pneumonia, organism unspecified 201 0 No Information Family History Family Member Type Diagnosis Age At Onset No Information Payers Payer name Insurance type Covered republican ID Authoriza tion(s) No Information Social History Type Description Quantity Date Captured Comments Alcohol Use Details No Caffeine Use Details No Tobacco Use Status No Information Smoking Status No Information Sex Male Vital Signs Date / Time: Height Weight BMI Pulse Rate Blood Pressure Temperature Respiratory Rate Body Surface Area Head Circumference Head Circ. Percentile Wt./Poli. Percentile BMI percentile Pulse Ox Inhaled Ox 3:01 PM 72.00 in 210.80 lbs 28.5 9 kg/m eter (2) 78 /min 134/95 mm[Hg] 97.90 F 16 /min 2.20 meter(2) 99 % Chief Complaint And Reason For Visit From encounter dated '03/10/2010 14:40'. follow up (chief complaint) shortness of breath (chief complaint) Reason For Referral Reason For Referral No Information Plan Of Treatment Date Type Action Status Referral Referred To: [address], [address] Ordered: Referral: [facility]. Radiology. Diagnostic testing. Appointment date/timeframe: 1 Week ordered History Of Present Illness Encounter Date Complaint History Of Prese nt Illness No Information Functional Status Date Functional Assessmen t Pain Score 0/10 Instructions Date Instruction Additional Infor mation No Information Assessments Type Assessment Date No Information Mental Status Date Cognitive Assessment Orientation - [place] ed to time, place, person, situation. Patient Care Teams Name Effective Dates (start - stop) Status Members No Information
--- OUTSIDE RECORDS SUMMARY | 2024-08-07 08:42 | XMS_ITS | Clinical Summary ---
Author Organization [facility] Address [address] [place] [address] Care Team Providers Care Energy Assistant Name Role Phone Armando Madison MD Primary Care Provider [phone] Allergies No known active allergies Medications sucralfate (CARAFATE) 1 gram tabletIndicatio ns:radiation proctitis Retention enema: Take 2 g (2 tablets) and dissolve in 20 mL water twice daily for at least 4 weeks or until resolution of symptoms; retain each enema for as long as possible or at least 5 minutes 120 tablet 3 4 Active relugolix (ORGOVYX) 120 mg tablet Take 1 tablet (120 mg total) by mouth Active multivitamin-mi nerals-lutein tablet Take 1 tablet by mouth daily Active ascorbic acid (ascorbic acid with gorge hips) 500 mg tablet,chewable Acti ve amLODIPine (NORVASC) 5 mg tablet Take 1 tablet (5 mg total) by mouth daily Active calcium carbonate-vitam in D3 1,500 mg (600mg elemental) -800 unit per tablet Take 1 tablet by mouth daily Active Active Problems Problem Noted Date Diagnosed Date Radiation proctitis 04/28/2024 Rectal bleeding 04/14/2024 Encounter for screening for malignant neoplasm o f colon 12/24/2023 Encounters Date Type Department Care Team Description 07/28/2024 2:30 PM CDT Office Visit [facility] Neuro[facility] 4th Floor [address] [place] [address] Cervicalgia from Last 3 Months Surgical History Surgery Date Site/Laterality Comments PROSTATECTOMY SIGMOIDOSCOPY 04/28/2024 proctitis COLONOSCOPY 01/28/2024 Medical History Medical History Date Comments Prostate cancer (HCC) Hypertension Social History Tobacco Use Types Packs/Day Years Used Date Smoking Tobacco: Former Cigarettes Tobacco Cessation:Counseling Given: Not Answered AUDIT-C Answer Date Recorded Q1: How often do you have a drink containing alcohol? Never 07/28/2024 Q2: How many drinks containi ng alcohol do you have on a typical day when you are drinking? Patient does not drink Q3: How often do you have si x or more drinks on one occasion? Never 07/28/2024 Hunger Vital Sign Answer Date Recorded Within the past 12 months, y ou worried that your food would run out before you got the money to buy more. Never true 07/29/19 25 Within the past 12 months, t he food you bought just didn't last and you didn't have money to get more. Never true 07/28/2024 Personal Safety Answer Date Recorded Have you ever been in or are you currently in a harmful physical or emotional relationship or is someone making you feel afraid or unsafe? 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 Gender Identity Not on file Sexual Orientation Not on file Obstetrics History Last Filed Vital Signs Vital Sign Reading Time Taken Comments Blood Pressure 120/73 07/28/2024 2:03 PM CDT Pulse 106 07/28/2024 2:03 PM CDT Temperature 36.7 C (98.1 F) 07/28/2024 2:03 PM CDT Respiratory Rate 16 07/28/2024 2:03 PM CDT Oxygen Saturation 100% 04/28/2024 10: 05 AM DISTRICT ADMINISTRATOR Inhaled Oxygen Concentration - - Weight 98.3 kg (216 lb 12.8 oz) 07/28/2024 2:03 PM CDT Height 182.9 cm (6') 07/28/2024 2:03 PM CDT Body Mass Index 29.4 07/28/2024 2:03 PM CDT Plan of Treatment Health Maintenance Due Date Last Done Comments Depression Screening 1965 Hepatitis C Screening 1965 Prostate Cancer Screening-PSA 1965 DTaP/Tdap/Td Vaccine (1 - Tdap) 1974 Hepatitis B Screening 1981 Regular Well Visit/Exam 18-64 1981 Pneumococcal vaccine <65 (1 of 2 - PCV) 1982 Zoster Vaccine (1 of 2) 1982 Influenza Vaccine (#1) 2024 Colon Cancer Screening-Colonoscopy 01/27/20342023 Procedures Procedure Name Priority Date/Time Associated Diagnosis Comments COLONOSCOPY 01/28/2024 10:27 AM CDT from Last 3 Months or Most Recently Relevant to Health Maintenance Results * Colonoscopy (01/28/2024 10:27 AM CDT) Anatomical Region Laterality Modality Other Narrative Procedure Note Marleni Marquez MD - 01/28/2024 10:27 AM CDT [facility] Patient Name: Abbe Azul Procedure Date: 01/28/2024 10:27 AM Date of : 1965 Admit Type: Outpatient Age: 58 Gender: Male Note Status: Finalized Attending MD: Marleni Marquez M.D. Procedure Date: 01/28/2024 Procedure: Colonoscopy Indications: Screening for colorectal malignant neoplasm, , Thisis the patient's first colonoscopy. Intermittentrectal bleeding. History of prostate cancer status post radiation therapy. Providers: Marleni Marquez M.D., MERYL Lamb (Anesthesia Staff), Margarita Javed, RN, Marsha Bland, MANUEL, Elmo Pastrana, Hoop Punch And Coiler Operator Helper Referring MD: Armando Madison M.D. Medicines: Monitored Anesthesia Care Complications: No immediate complications. Estimated Blood Loss: Estimated blood loss was minimal. Procedure: Pre-Anesthesia Assessment: - Prior to the procedure, a History and Physicalwas performed, and patient medications and allergieswere reviewed. The patient is competent. The risks and benefits of the procedure and the sedation optionsand risks were discussed with the patient. Allquestions were answered and informed consent was obtained. Patient identification and proposed procedure were verified by the physician, the nurse and the draft roller picker in the procedure room. Mental Status Examination: alert and oriented. AirwayExamination: normal oropharyngeal airway and neck mobility. Respiratory Examination: clear to auscultation. CV Examination: normal. Prophylactic Antibiotics: The patient does not require prophylactic antibiotics. Prior Anticoagulants: The patient has taken no anticoagulant or antiplatelet agents. ASA Grade Assessment: IV - A patient with severe systemic disease that is a constant threat to life. After reviewing the risks and benefits, the patient was deemed in satisfactory condition to undergo the procedure. The anesthesia plan was to use monitored anesthesia care (MAC). Immediately prior to administration of medications, the patient was re-assessed for adequacy to receive sedatives. The heart rate, respiratory rate, oxygen saturations, blood pressure, adequacy of pulmonary ventilation,and response to care were monitored throughout the procedure. The physical status of the patient was re-assessed after the procedure. - The risks and benefits of the procedure and the sedation options and risks were discussed with the patient. All questions were answered and informed consent was obtained. After I obtained informed consent, the scope was passed under direct vision. Throughout theprocedure, the patient's blood pressure, pulse, and oxygen saturations were monitored continuously. The scopewas passed under direct vision. The Colonoscope was introduced through the anus and advanced to the the cecum, identified by appendiceal orifice andileocecal valve. The colonoscopy was performed without difficulty. The patient tolerated the procedurewell. The quality of the bowel preparation was adequate.The bowel preparation used was polyethylene glycol(PEG) and bisacodyl tablets via split dose instruction. Findings: A 4 mm polyp was found in the sigmoid colon. The polyp was sessile.The polyp was removed with a jumbo cold forceps. Resection and retrieval were complete. Estimated blood loss was minimal. A diffuse area of moderately altered vascular, erythematous and hemorrhagic mucosa was found in the distal rectum. Consistent with radiation proctitis. The exam was otherwise without abnormality on direct and retroflexion views. Impression: - One 4 mm polyp in the sigmoid colon, removed witha jumbo cold forceps. Resected and retrieved. - Altered vascular, erythematous and hemorrhagic mucosa in the distal rectum. - The examination was otherwise normal on directand retroflexion views. - Radiation proctitis. Recommendation: - Await pathology results. - Sucralfate enema. - Repeat colonoscopy in 5 years for surveillance. Procedure Code(s): --- Professional --- 10424, Colonoscopy, flexible; with biopsy, singleor multiple Diagnosis Code(s): --- Professional --- Z12.11, Encounter for screening for malignantneoplasm of colon D12.5, Benign neoplasm of sigmoid colon K62.89, Other specified diseases of anus andrectum K62.5, Hemorrhage of anus and rectum K62.7, Radiation proctitis CPT copyright 2020 [employer]. All rights reserved. The codes documented in this report are preliminary and upon medical biller coder reviewmay be revised to meet current compliance requirements. Electronically signed by Marleni Marquez M.D. Marleni Marquez M.D. 01/28/2024 11:04:20 AM Number of Addenda: 0 Note Initiated On: 01/28/2024 10:27 AM us Marleni Marquez MD ENDOSCOPY PROCEDURES Ed ited Result - Final from Last 3 Months or Most Recently Relevant to Health Maintenance Insurance [facility] Care Teams Energy Assistant Relationship Specialty Start Date End Date Armando Madison MD [address] [place], [place] [id number] PCP - General Family Medicine 01/17/24
--- OUTSIDE RECORDS SUMMARY | 2024-08-07 08:42 | XMS_ITS | Clinical Summary ---
Author Organization [facility] Address [address] [place] [address] Phone Care Team Providers Care Corporate Travel Manager Name Role Phone Armando Madison MD Primary Care Provider + [phone] Allergies No known active allergies Medications OTHER Beet root Active multivitamins-m inerals-lutein (CENTRUM SILVER) Tablet Take 1 Tablet by mouth daily. Active relugolix (Orgovyx) 120 mg Tablet Take 120 mg by mouth. Active predniSONE (DELTASONE) 10 mg tablet Take 5 tablets (50 mg) by mouth daily Days 1-3. Days 4-5 take 4 tablets (40mg) by mouth daily. Days 6-7 take 3 tablets (30mg) by mouth daily. Days 8-9 take 2 tablets (20mg) by mouth daily. Days 10-11 take 1 tablet (10mg) by mouth daily. 35 Tablet 02/16/2024 Active Active Problems No known active problems Encounters Date Type Department Care Team Description 07/30/2024 Telephone [facility] [address] [place] [address] Seymour Powell MD Bone Scan 07/20/2024 External Device Data STL ABSTRACTION Provider, Abstract 07/13/2024 Abstract [facility] [address] [place] [phone] Seymour Powell MD 07/13/2024 Telephone [facility] - [facility] [address] [place] [address] Seymour Powell MD Orders 06/18/2024 11:45 AM COLLAR BAND CREASER Office Visit [facility] [address] [place] [address] Seymour Powell MD Chronic anemia (Primary Dx); Prostate cancer (CMS/HCC) 06/04/2024 Orders Only [facility] [address] [place] [address] Seymour Powell MD 06/04/2024 External Device Data STL ABSTRACTION Provider, Abstract 06/03/2024 Orders Only [facility] [address] [place] [phone] Seymour Powell MD from Last 3 Months Family History Medical History Relation Name Comments No Known Problems Child Prostate Cancer Father No Known Problems Mother No Known Problems Sister 1 Pancreatic Cancer Sister 2 Relation Name Status Comments Child Alive Father Mother Sister 1 Sister 2 Social History Tobacco Use Types Packs/Day Years Used Date Smoking Tobacco: Former Cigarettes 0.3 15 Q uit: 10/30/2021 Tobacco Cessation:Counseling Given: Not Answered Alcohol Use Standard Drinks/Week Comments Not Currently 0 (1 standard drink = 0.6 oz pur e alcohol) Feeling Safe Answer Date Recorded Are you in a relationship wi th someone who hurts you emotionally and/or physically? Unable to obtain 02/14/2023 Food Insecurity Answer Date Recorded Social/Environmental Concerns No concerns Transportation Needs Answer Date Record ed Social/Environmental Concerns No concerns Housing Stability Answer Date Recorded Social/Environmental Concerns No concerns Utility Needs Answer Date Recorded Social/Environmental Concerns No concerns Sex and Gender Information Value Date Recorded Sex Assigned at Not on file Legal Sex Male 10:44 AM CDT Gender Identity Not on file Sexual Orientation Not on file Last Filed Vital Signs Vital Sign Reading Time Taken Comments Blood Pressure 147/95 06/18/2024 11:36 AM COLLAR BAND CREASER Pulse 96 06/18/2024 11:34 AM COLLAR BAND CREASER Temperature 36.5 C (97.7 F) 06/18/2024 11:34 AM COLLAR BAND CREASER Respiratory Rate 16 06/18/2024 11:3 4 AM COLLAR BAND CREASER Oxygen Saturation 98% 06/18/2024 11: 34 AM COLLAR BAND CREASER Inhaled Oxygen Concentration - - Weight 101.1 kg (222 lb 12.8 oz) 2024 11:34 AM COLLAR BAND CREASER Height 182.9 cm (6') 02/14/2023 10:11 AM CDT Body Mass Index 30.22 02/14/2023 10:11 AM CDT Plan of Treatment Upcoming Encounters Date Type Department Care Team (Late st Contact Info) Description 08/13/2024 4:30 PM CDT Telephone Check Up [facility] [address] [place] [phone] Seymour Powell MD [address] [facility] [address] [place] [phone] 10/13/2024 11:45 AM CDT Office Visit [facility] [address] [place] [phone] [place] [address] [place] [address] [facility] [address] [place] [phone] Health Maintenance Due Date Last Done Comments Pre-Diabetes and Diabetes Screening 1965 DTAP/TDAP/TD VACCINES (1 - Tdap) 1982 Preventative Visit-Managed Medicaid 1982 FIT-DNA Q 3 years 02/23/2008 FIT/FOBT Q 1 year 02/23/2008 ZOSTER VACCINE (1 of 2) 2013 INFLUENZA VACCINE (#1) 2023 Flex Sig/CT Colonography Q 5 years 04/28/20292023 COLORECTAL SCREENING 04/28/2034 04/28/2024, 01/28/2024, 01/28/2024 Colorectal Cancer Screening 04/28/2034 RSV VACCINE (60+ or ) (1 - 1-dose 75+ series) 2038 Medical Devices Implanted Type Area Fountain Operator Device Identifier Shelf Expiration Date Model / Serial / Lot Clip Hemolok Lrg [id number] [place] [facility] [id number] Implanted:Qty : 1 on 02/14/2023 by Dany Waddell MD at [facility] Clip N/A: Pelvis TELEFLEX- WECK CLOSURE SYS 10/23/2027 [id number] / / [id number] Clip Hemolok Ml [id number] [place] [facility] [place] [id number] Implanted:Qty : 1 on 02/14/2023 by Dany Waddell MD at [facility] Clip N/A: Pelvis TELEFLEX- WECK CLOSURE SYS 07/02/2027 [id number] / / [id number] Clip Hemolok Lrg [id number] [place] [facility] [place] [id number] Implanted:Qty : 1 on 02/14/2023 by Dany Waddell MD at [facility] Clip N/A: Pelvis TELEFLEX- WECK CLOSURE SYS 04/22/2027 [id number] / / [id number] Clip Hemolok Lrg [id number] - [facility] [place] [id number] Implanted:Qty : 1 on 02/14/2023 by Dany Waddell MD at [facility] Clip N/A: Pelvis TELEFLEX- WECK CLOSURE SYS 03/19/2027 [id number] / / [id number] Hemostatic Surgicel 4x8in 1953 - [id number] Implanted:Qty : 1 on 02/14/2023 by Dany Waddell MD at [facility] Hemostatic N/A: Pelvis [employer]- [employer] [id number] 06/12/20271951 / / [id number] Hemostatic Surgicel 4x8in 1953 - [id number] Implanted:Qty : 1 on 02/14/2023 by Dany Waddell MD at [facility] Hemostatic N/A: Pelvis J[employer]- [employer] [id number] 06/12/20271951 / / [id number] Hemostat Elliott Ah Powder 3gm [id number] - [id number] Implanted:Qty : 1 on 02/14/2023 by Dany Waddell MD at [facility] Hemostatic N/A: Pelvis BARD CATOL [id number] 07/10/2027 [id number] / / [id number] Procedures Procedure Name Priority Date/Time Associated Diagnosis Comments BASIC METABOLIC PANEL Routine 06/02/2024 4:11 PM COLLAR BAND CREASER IRON LEVEL Routine 06/02/2024 3:59 PM COLLAR BAND CREASER from Last 3 Months Results * BASIC METABOLIC PANEL (06/02/2024 4:11 PM COLLAR BAND CREASER) Blood Seymour Powell MD CHEMISTRY ORDERABLES Final Resu lt * IRON LEVEL (06/02/2024 3:59 PM COLLAR BAND CREASER) Blood Seymour Powell MD CHEMISTRY ORDERABLES Final Resu lt from Last 3 Months Insurance [facility] MEDICAID [facility] MEDICAID Advance Directives For more information, please contact: [phone] * Full Code (Latest Code Status on File) Date Activated Date Inactivated Comments 02/14/2023 5:13 PM 02/15/2023 5:25 PM Care Teams Corporate Travel Manager Relationship Specialty Start Date End Date Armando Madison MD [address] [place] [address] PCP - General Family Practice 10/31/23
--- OUTSIDE RECORDS SUMMARY | 2024-08-07 08:42 | XMS_ITS | Referral Summary ---
Author Organization [facility] Address [address] [place] [address] Care Team Providers Care Wool Classer Name Role Phone Armando Madison MD Primary Care Provider [phone] Encounters Date Type Department Care Team Description 07/28/2024 2:30 PM CDT [facility] [address] [place] [address] Health 4th Floor [address] [place] [address] Cervicalgia from Last 3 Months Allergies No known active allergies Medications sucralfate (CARAFATE) 1 gram tabletIndicatio ns:radiation proctitis Retention enema: Take 2 g (2 tablets) and dissolve in 20 mL water twice daily for at least 4 weeks or until resolution of symptoms; retain each enema for as long as possible or at least 5 minutes 120 tablet 3 Active relugolix (ORGOVYX) 120 mg tablet Take [...] for malignant neoplasm o f colon 12/24/2023 Social History Tobacco Use Types Packs/Day Years [...] on file Legal Sex Male 9:55 AM ADMIRALTY LAWYER Gender Identity Not on file Sexual Orientation Not on file Last Filed Vital Signs Vital Sign Reading Time Taken Comments Blood Pressure 120/73 07/28/2024 2:03 PM CDT Pulse 106 07/28/2024 2:03 PM CDT Temperature 36.7 C (98.1 F) 07/28/2024 2:03 PM CDT Respiratory Rate 16 07/28/2024 2:03 PM CDT Oxygen Saturation 100% 04/28/2024 10: 05 AM ADMIRALTY LAWYER Inhaled Oxygen Concentration - - Weight 98.3 kg (216 lb 12.8 oz) 07/28/2024 2:03 PM CDT Height 182.9 cm (6') 07/28/2024 2:03 PM CDT Body Mass Index 29.4 07/28/2024 2:03 PM CDT Plan of Treatment Not on file Procedures Procedure Name Priority Date/Time Associated Diagnosis Comments COLONOSCOPY 01/28/2024 10:27 AM CDT from Last 3 Months or Most Recently Relevant to Health Maintenance Results * Colonoscopy (01/28/2024 10:27 AM CDT) Anatomical Region Laterality Modality Other Narrative Procedure Note Marleni Marquez MD - 01/28/2024 10:27 AM CDT [facility] Endoscopy Lab Patient Name: Abbe Azul Procedure [...] M.D., MERYL Lamb (Anesthesia Staff), Margarita Javed, MANUEL, Marsha Bland RN, Elmo Pastrana, Director Of Individual Giving Referring MD: Armando Madison M.D. Medicines: Monitored [...] by the physician, the nurse and the portal administrator in the procedure room. Mental Status Examination: [...] for surveillance. Procedure Code(s): --- Professional --- 16376, Colonoscopy, flexible; with biopsy, singleor multiple Diagnosis Code(s): --- Professional --- Z12.11, Encounter for screening for malignantneoplasm of colon D12.5, Benign neoplasm of sigmoid colon K62.89, Other specified diseases of anus andrectum K62.5, Hemorrhage of anus and rectum K62.7, Radiation proctitis CPT copyright 2020 [employer]. All rights reserved. The codes documented in this report are preliminary and upon stonemason helper reviewmay be revised to meet current compliance requirements. Electronically signed by Marleni Marquez M.D. Marleni Marquez M.D. 01/28/2024 11:04:20 AM Number of Addenda: 0 Note Initiated On: 01/28/2024 10:27 AM Marleni Marquez MD ENDOSCOPY PROCEDURES Ed ited Result - Final from Last 3 Months or Most Recently Relevant to Health Maintenance Insurance [facility] Care Teams Wool Classer Relationship Specialty Start Date End Date Armando Madison MD [address] [place] [address] PCP - General Family Medicine 01/17/24
== END 2024-08-07 08:26 | disposition home or self-care (01) ==
PROVIDERS: PCP Family Medicine; Visit Provider Internal Medicine Hematology & Oncology
DX: C61 Malignant neoplasm of prostate (principal)
CPT/HCPCS: 78306; A9503

== ENCOUNTER 2024-10-12 11:32 | Outpatient (CLI) | payer OTHER, SELFPAY ==
[2024-10-12 11:55] LABS: Hematocrit 36.9 % (42.0-52.0); Hemoglobin 11.2 g/dL (14.0-18.0); Mean Corpuscular HGB Conc 30.4 g/dl (32-36); Mean Corpuscular Hemoglobin 22.4 pg (26-34); Mean Corpuscular Volume 73.7 fl (80-100); Mean Platelet Volume 9.7 fl (7.4-10.4); Platelet Count Result 196 k/mm3 (150-375); Red Blood Count 5.01 M/mm3 (4.6-6.20); Red Cell Distribution Width 16.3 % (11.5-14.5); White Blood Count 6.1 K/mm3 (4.5-10.0)
--- OUTSIDE RECORDS SUMMARY | 2024-10-12 12:00 | XMS_ITS | Clinical Summary ---
Author Organization [facility] Address [address] [place] [address] Care Team Providers Care Director Of Software Development Name Role Phone Armando Madison MD Primary Care Provider [phone] [phone] Allergies No known active allergies Medications sucralfate [...] Encounters Date Type Department Care Team Description 08/19/[address] [facility] Gastroenterology at [address] [place] [address] OlagMarleni romero MD 08/18/2024 12:00 PM CDT Office Visit [facility] Gastroenterology at [address] [place] [address] Marleni Marquez MD Rectal bleeding (Primary Dx); Radiation proctitis 08/18/[address] [facility] Gastroenterology at [address] [place] [address] Marleni Marquez MD Med Management (Sucralfate enema) 08/18/[address] [facility] Gastroenterology at [address] [place] [phone] Marleni Marquez MD 07/28/2024 2:30 PM CDT [facility] Health 4th Floor [address] [place] [address] Cervicalgia from Last 3 Months [...] on file Legal Sex Male 9:55 AM JAVA DEVELOPER ARCHITECT Gender Identity Not on file Sexual Orientation Not on file Obstetrics History Last Filed Vital Signs Vital Sign Reading Time Taken Comments Blood Pressure 132/89 08/18/2024 11:46 AM CDT Pulse 106 08/18/2024 11:46 AM CDT Temperature 36.7 C (98.1 F) 07/28/2024 2:03 PM CDT Respiratory Rate 16 07/28/2024 2:03 PM CDT Oxygen Saturation 99% 08/18/2024 11: 46 AM CDT Inhaled Oxygen Concentration - - Weight 99.7 kg (219 lb 12.8 oz) 025 11:46 AM CDT Height 182.9 cm (6') 08/18/2024 11:46 AM CDT Body Mass Index 29.81 08/18/2024 11:46 AM CDT Plan of Treatment Health Maintenance Due Date Last Done Comments Depression Screening 1965 Hepatitis C Screening 1963 Prostate Cancer Screening-PSA 1963 DTaP/Tdap/Td Vaccine (1 - Tdap) 1974 Hepatitis B Screening 1981 Regular Well Visit/Exam 18-64 1981 Pneumococcal vaccine <65 (1 of 2 - PCV) 1982 Zoster Vaccine (1 of 2) 1982 Influenza Vaccine (Season Ended) 2025 Colon Cancer Screening-Colonoscopy 01/27/20342023 Procedures Procedure Name Priority Date/Time Associated Diagnosis Comments COLONOSCOPY 01/28/2024 10:27 AM CDT from Last 3 Months or Most Recently Relevant to Health Maintenance Results * Colonoscopy (01/28/2024 10:27 AM CDT) Anatomical Region Laterality Modality Other Narrative Procedure Note Marleni Marquez MD - 01/28/2024 10:27 AM CDT - [facility] Endoscopy Lab Patient Name: Abbe Azul Procedure Date: 01/28/2024 10:27 AM Date of : 1965 Admit Type: Outpatient Age: 58 Gender: Male Note Status: Finalized Attending MD: Marleni Marquez M.D. Procedure Date: 01/28/2024 Procedure: Colonoscopy Indications: Screening for colorectal malignant neoplasm, , Thisis the patient's first colonoscopy. Intermittentrectal bleeding. History of prostate cancer status post radiation therapy. Providers: Marleni Marquez M.D., MERLY Lamb (Anesthesia Staff), Margarita Javed, MANUEL, Marsha Bland, MANUEL, Elmo Pastrana, Wellness Program Manager Referring MD: Armando Madison M.D. Medicines: Monitored [...] by the physician, the nurse and the go cart mechanic in the procedure room. Mental Status Examination: [...] for surveillance. Procedure Code(s): --- Professional --- 38868, Colonoscopy, flexible; with biopsy, singleor multiple Diagnosis Code(s): --- Professional --- Z12.11, Encounter for screening for malignantneoplasm of colon D12.5, Benign neoplasm of sigmoid colon K62.89, Other specified diseases of anus andrectum K62.5, Hemorrhage of anus and rectum K62.7, Radiation proctitis CPT copyright 2020 [employer]. All rights reserved. The codes documented in this report are preliminary and upon tassel clipper reviewmay be revised to meet current compliance requirements. Electronically signed by Marleni Marquez M.D. Marleni Marquez M.D. 01/28/2024 11:04:20 AM Number of Addenda: 0 Note Initiated On: 01/28/2024 10:27 AM Marleni Marquez MD ENDOSCOPY PROCEDURES Ed ited Result - Final from Last 3 Months or Most Recently Relevant to Health Maintenance Insurance [facility] Care Teams Director Of Software Development Relationship Specialty Start Date End Date Armando Madison MD [address] [place] [id number] PCP - General Family Medicine 01/17/24
--- OUTSIDE RECORDS SUMMARY | 2024-10-12 12:00 | XMS_ITS | Referral Summary ---
Author Organization [facility] Address [address] [place] [address] Care Team Providers Care Exploration Driller Name Role Phone Armando Madison MD Primary Care Provider +1 [phone] Encounters Date Type Department Care Team Description 08/19/[address] [facility] Gastroenterology at [address] [address] Marleni Marquez MD 08/18/[address] [facility] Gastroenterology at [address] [place] [phone] Marleni Marquez MD Med Management (Sucralfate enema) 08/18/[address] [facility] Gastroenterology at [address] [address] Marleni Marquez MD 08/18/2024 12:00 PM CDT Office Visit 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 Gender Identity Not on file Sexual Orientation [...] 08/18/2024 11:46 AM CDT Plan of Treatment Not on file Procedures Procedure Name Priority Date/Time Associated Diagnosis Comments COLONOSCOPY 01/28/2024 10:27 AM CDT from Last 3 Months or Most Recently Relevant to Health Maintenance Results * Colonoscopy (01/28/2024 10:27 AM CDT) Anatomical Region Laterality Modality Other Narrative Procedure Note Marleni Marquez MD - 01/28/2024 10:27 AM CDT [facility] Endoscopy Lab Patient Name: Abbe Azul Procedure [...] Javed, RN, Marsha Bland, MANUEL, Elmo Pastrana, Industrial Pharmacist Referring MD: Armando Madison M.D. Medicines: Monitored [...] by the physician, the nurse and the outpatient dietitian in the procedure room. Mental Status Examination: [...] for surveillance. Procedure Code(s): --- Professional --- 05348, Colonoscopy, flexible; with biopsy, singleor multiple Diagnosis Code(s): --- Professional --- Z12.11, Encounter for screening for malignantneoplasm of colon D12.5, Benign neoplasm of sigmoid colon K62.89, Other specified diseases of anus andrectum K62.5, Hemorrhage of anus and rectum K62.7, Radiation proctitis CPT copyright 2020 [employer]. All rights reserved. The codes documented in this report are preliminary and upon certified hand therapist reviewmay be revised to meet current compliance requirements. Electronically signed by Marleni Marquez M.D. Marleni Marquez M.D. 01/28/2024 11:04:20 AM Number of Addenda: 0 Note Initiated On: 01/28/2024 10:27 AM Marleni Marquez MD ENDOSCOPY PROCEDURES Ed ited Result - Final from Last 3 Months or Most Recently Relevant to Health Maintenance Insurance [facility] Care Teams Exploration Driller Relationship Specialty Start Date End Date Armando Madison MD [address] [address] PCP - General Family Medicine 01/17/24
--- OUTSIDE RECORDS SUMMARY | 2024-10-12 12:00 | XMS_ITS | Clinical Summary ---
Author Organization [facility] Address [address] [place] [address] Phone Care Team Providers Care Phys Assistant Name Role Phone Armando Madison MD Primary Care Provider + [phone] Allergies No known active allergies Medications OTHER [...] Encounters Date Type Department Care Team Description 08/13/2024 4:30 PM CDT Telephone Check Up [facility] - [address] [place] [address] Seymour Powell MD 08/10/2024 Orders Only [facility] - [address] [place] [id number] Seymour Powell MD 07/30/2024 Telephone [facility] - [address] [place] [phone] Seymour Powell MD Bone Scan 07/20/2024 External Device Data STL ABSTRACTION Provider, Abstract 07/13/2024 Abstract [facility] [address] [place] [phone] Seymour Powell MD 07/13/2024 Telephone [facility] [address] [place] [address] Seymour Powell MD Orders from Last 3 Months Family History Medical [...] Comments Blood Pressure 147/95 06/18/2024 11:36 AM GLOBAL ACCOUNT DIRECTOR Pulse 96 06/18/2024 11:34 AM GLOBAL ACCOUNT DIRECTOR Temperature 36.5 C (97.7 F) 06/18/2024 11:34 AM GLOBAL ACCOUNT DIRECTOR Respiratory Rate 16 06/18/2024 11:3 4 AM GLOBAL ACCOUNT DIRECTOR Oxygen Saturation 98% 06/18/2024 11: 34 AM GLOBAL ACCOUNT DIRECTOR Inhaled Oxygen Concentration - - Weight 101.1 kg (222 lb 12.8 oz) 2024 11:34 AM GLOBAL ACCOUNT DIRECTOR Height 182.9 cm (6') 02/14/2023 10:11 AM CDT Body Mass Index 30.22 02/14/2023 10:11 AM CDT Plan of Treatment Upcoming Encounters Date Type Department Care Team (Late st Contact Info) Description 10/13/2024 11:45 AM CDT Office Visit [facility] - [address] [facility] [address] [place] [address] Seymour Powell MD [address] [facility] [address] [place] [address] Health Maintenance Due Date Last Done Comments Pre-Diabetes and Diabetes Screening 1965 DTAP/TDAP/TD VACCINES (1 - Tdap) 1982 FIT-DNA Q 3 years 02/23/2008 FIT/FOBT Q 1 year 02/23/2008 ZOSTER VACCINE (1 of 2) 2013 INFLUENZA VACCINE (#1) 2023 Flex Sig/CT Colonography Q 5 years 04/28/20292023 COLORECTAL SCREENING 04/28/2034 04/28/2024, 01/28/2024, 01/28/2024 Colorectal Cancer Screening 04/28/2034 RSV VACCINE (60+ or ) (1 - 1-dose 75+ series) 2038 Medical Devices Implanted Type Area News Videotape Editor Device Identifier Shelf Expiration Date Model / Serial / Lot Clip Hemolok Lrg [id number] [place] [facility] [place] [id number] Implanted:Qty : 1 on 02/14/2023 by Dany Waddell MD at [facility] Clip N/A: Pelvis TELEFLEX- WECK CLOSURE SYS 10/23/2027 [id number] / / [id number] Clip Hemolok [id number] - [place] - [id number] Implanted:Qty : 1 on 02/14/2023 by Dany Waddell MD at [facility] Clip N/A: Pelvis TELEFLEX- WECK CLOSURE SYS 07/02/2027 [id number] / / [id number] Clip Hem[employer]ok Lrg [id number] [place] [facility] [place] [id number] Implanted:Qty : 1 on 02/14/2023 by Dany Waddell MD at [facility] Clip N/A: Pelvis TELEFLEX- WECK CLOSURE SYS 04/22/2027 [id number] / / [id number] Clip Hemolok Lrg [id number] [place] [facility] [place] [id number] Implanted:Qty : 1 on 02/14/2023 by Dany Waddell MD at [facility] Clip N/A: Pelvis TELEFLEX- WECK CLOSURE SYS 03/19/2027 [id number] / / [id number] Hemostatic Surgicel 4x8in 1953 - [id number] Implanted:Qty : 1 on 02/14/2023 by Dany Waddell MD at [facility] Hemostatic N/A: Pelvis [employer] [id number] 06/12/20271951 / / [id number] Hemostatic Surgicel 4x8in 1953 - [id number] Implanted:Qty : 1 on 02/14/2023 by Dany Waddell MD at [facility] Hemostatic N/A: Pelvis [employer] [id number] 06/12/20271951 / / [id number] Hemostat Elliott Ah Powder 3gm [id number]-Dam - [id number] Implanted:Qty : 1 on 02/14/2023 by Dany Waddell MD at [facility] Hemostatic N/A: Pelvis BARD DAVOL [id number] 07/10/2027 [id number] / / [id number] Procedures Procedure Name Priority Date/Time Associated Diagnosis Comments NM BONE SCAN WHOLE BODY Routine 08/07/2024 10:36 AM CDT from Last 3 Months Results * NM BONE SCAN WHOLE BODY (08/07/2024 10:36 AM CDT) Anatomical Region Laterality Modality Nuclear Medicine Seymour Powell MD NM ORDERABLES Final Result from Last 3 Months Insurance [facility] MEDICAID [facility] MEDICA[facility] Advance Directives For more information, please contact: [phone] * Full Code (Latest Code Status on File) Date Activated Date Inactivated Comments 02/14/2023 5:13 PM 02/15/2023 5:25 PM Care Teams Phys Assistant Relationship Specialty Start Date End Date Armando Madison MD [address] [place] [address] PCP - General Family Practice 10/31/23
[2024-10-12 14:00] LABS: Iron 100 ug/dL (49-181)
[2024-10-12 14:02] LABS: Anion Gap 9 mmol/L (4-12); Blood Urea Nitrogen 15 mg/dL (9-20); Calcium 10.1 mg/dL (8.4-10.2); Carbon Dioxide 28 mmol/L (22-30); Chloride 106 mmol/L (98-107); Estimated Glomerular Filt Rate > 60; Glucose 100 mg/dL (65-110); Potassium 4.3 mmol/L (3.4-5.0); Sodium 143 mmol/L (137-145)
[2024-10-12 14:12] LABS: Percent Iron Saturation 26 % (20-50)
[2024-10-12 14:36] LABS: Prostate Specific Antigen < 0.1 ng/mL (< OR = 4.0)
[2024-10-12 15:11] LABS: Folic Acid 18.3 ng/mL (2.76->20)
== END 2024-10-12 11:33 | disposition home or self-care (01) ==
PROVIDERS: PCP Family Medicine; Visit Provider Internal Medicine Hematology & Oncology
DX: D64.9 Anemia, unspecified (principal); C61 Malignant neoplasm of prostate
CPT/HCPCS: 36415; 80048; 82607; 82728; 82746; 83540; 83550; 84153; 85027

== ENCOUNTER 2025-02-09 10:36 | Outpatient (CLI) | payer OTHER, SELFPAY ==
--- NOTE | ~2025-02-09 | XR_ITS ---
XR lumbar spine 2-3V Indication: Vertebrogenic low back pain Comparison: None Findings: Grade 1 anterolisthesis of L4 on L5, no fracture The disc heights are intact. Soft tissues unremarkable Impression: No acute abnormality. Reviewed, dictated and finalized at location P. Impression: No acute abnormality.
== END 2025-02-09 10:37 | disposition home or self-care (01) ==
LOC: MICIMG 10:39
PROVIDERS: PCP Family Medicine; Visit Provider Nurse Practitioner Family
DX: M54.51 Vertebrogenic low back pain (principal)
CPT/HCPCS: 72100